=== PATIENT | female | born 1960 | race Caucasian/White ===

== ENCOUNTER 2016-11-19 10:50 | Emergency (ER) | payer BC ==
[2016-11-19 11:27] VITALS: BP 121/81
--- NOTE | 2016-11-19 11:45 | UC ---
Eye Complaint HPI - HPI Summary HPI Summary: left eye irritation, for past 3 days, itching and painful, slight discharge per patient. Complaints of sore throat. Some post nasal drip . has had greenish discharge in the left eye at first and perhaps spreading in to the right eye now. denies vision loss, photophobia, eye injury, denies wearing contact lens or recent travel [ End ] - History of Current Complaint Chief Complaint: UCEye Stated Complaint: LEFT EYE COMPLAINT Time Seen by Provider: 11/19/16 11:35 Hx Obtained From: Family/Engineer Third Assistant Onset/Duration: Gradual Onset Aggravating Factor(s): Nothing Alleviating Factor(s): Nothing Associated Signs And Symptoms: Positive: Drainage (Purulent). Negative: Photophobia, Vision Impairment Bilateral, Vision Impairment Right, Vision Impairment Left - Risk Factors Penetrating Injury Risk Factor: Negative Globe Rupture Risk Factors: Negative Acute Glaucoma Risk Factors: Negative Optic Artery Occlusion Risk Factors: Negative - Allergies/Home Medications Allergies/Adverse Reactions: Allergies Allergy/AdvReac Type Severity Reaction Status Date / Time No Known Allergies Allergy Verified 11/19/16 11:27 PMH/Surg Hx/FS Hx/Imm Hx Previously Healthy: Yes - Surgical History Surgical History: Yes Surgery Procedure, Year, and Place: inguinal hernia - Family History Known Family History: Positive: None - Social History Occupation: Employed Full-time - Wonderful employee at [employer] Alcohol Use: Occasionally Substance Use Type: None Smoking Status (MU): Never Smoked Tobacco Review of Systems Eyes: Eye Redness ENT: Sore Throat All Other Systems Reviewed And Are Negative: Yes Physical Exam Triage Information Reviewed: Yes Appearance: Well-Appearing, No Pain Distress, Well-Nourished Vital Signs: Initial Vital Signs Temp 98.7 F 11/19/16 11:23 Pulse 78 11/19/16 11:23 Resp 16 11/19/16 11:23 BP 121/81 11/19/16 11:23 Pulse Ox 99 11/19/16 11:23 Vital Signs Reviewed: Yes Eye Exam: Normal Eyes: Positive: Conjunctiva Inflamed - left lateral aspect of the sclera injected, Discharge - non present at this time but patient had previously wiped eyes ENT Exam: Normal ENT: Positive: Normal ENT inspection, Hearing grossly normal, Pharynx normal, Nasal congestion, TM dull - right Neck exam: Normal Neck: Positive: 1 Respiratory Exam: Normal Cardiovascular Exam: Normal Musculoskeletal Exam: Normal Neurological Exam: Normal Psychological Exam: Normal Skin Exam: Normal Eye Complaint Course/Dx - Course Course Of Treatment: Most likely bacterial as she has had discharge for 3 days in the one eye . Will start optholmic antibiotic at this time to prevent progression of the infection. Discussed potential for it to be viral / allergic as well. Will was hands diligently as she always does and consider OTC antihistamine to reduce post nasal drip. - Differential Dx/Diagnosis Differential Diagnosis/HQI/PQRI: Conjunctivitis, Corneal Abrasion Provider Diagnoses: Conjunctivitis Right eye Discharge - Discharge Plan Condition: Good Disposition: HOME Prescriptions: Polymyx/Trimethoprim OPTH* [Polytrim OPHTH*] 1 drop LEFT EYE Q3H #1 btl Patient Education Materials: Conjunctivitis (ED) Referrals: Trace Alonzo MD [Primary Care Provider] - If Needed
== END 2016-11-19 12:12 | disposition home or self-care (01) ==
LOC: UCCORT 10:50
DX: H10.31 Unspecified acute conjunctivitis, right eye (principal)
CPT/HCPCS: 99212; G0463

== ENCOUNTER 2016-11-24 08:53 | Emergency (ER) | payer BC ==
[2016-11-24 09:36] VITALS: BP 128/70
--- NOTE | 2016-11-24 09:54 | UC ---
Eye Complaint HPI - HPI Summary HPI Summary: right eye redness x 10 days + tearing , puffiness, no eye pain, no change in vision was seen 5 days ago placed on abx eye drops for conjunctivitis - History of Current Complaint Chief Complaint: UCEye Stated Complaint: LEFT EYE COMPLAINT Time Seen by Provider: 11/24/16 09:29 Hx Obtained From: Patient Hx Last Menstrual Period: 10yrs Onset/Duration: Gradual Onset, Lasting Days - 10, Still Present Timing: Constant Severity Initially: Moderate Severity Currently: Moderate Location of Injury: Conjunctiva Character: Foreign Body Sensation Aggravating Factor(s): Blinking Alleviating Factor(s): Nothing Associated Signs And Symptoms: Positive: Drainage (Clear) - left eye. Negative : Photophobia - Allergies/Home Medications Allergies/Adverse Reactions: Allergies Allergy/AdvReac Type Severity Reaction Status Date / Time No Known Allergies Allergy Verified 11/24/16 09:36 PMH/Surg Hx/FS Hx/Imm Hx Previously Healthy: Yes Cancer History: Other - lymphoma Other Cancer History: lymphoma - Surgical History Surgical History: Yes Surgery Procedure, Year, and Place: inguinal hernia - Family History Known Family History: Positive: None Negative: Diabetes - Social History Alcohol Use: Occasionally Substance Use Type: None Smoking Status (MU): Never Smoked Tobacco Review of Systems Constitutional: Negative Skin: Negative Eyes: Drainage - clear left eye, Eye Redness - left eye ENT: Negative Respiratory: Negative Cardiovascular: Negative Gastrointestinal: Negative Genitourinary: Negative Motor: Negative Neurovascular: Negative Musculoskeletal: Negative Neurological: Negative Psychological: Negative All Other Systems Reviewed And Are Negative: Yes Physical Exam Triage Information Reviewed: Yes Appearance: Well-Appearing, No Pain Distress, Well-Nourished Vital Signs: Initial Vital Signs Temp 98.9 F 11/24/16 09:30 Pulse 82 11/24/16 09:30 Resp 18 11/24/16 09:30 BP 128/70 11/24/16 09:30 Vital Signs Reviewed: Yes Eyes: Positive: Conjunctiva Inflamed - left eye, Discharge - clear / tears left eye ENT: Positive: Normal ENT inspection, Hearing grossly normal, Pharynx normal Neck exam: Normal Neck: Positive: Supple, Nontender, No Lymphadenopathy Respiratory: Positive: Chest non-tender, Lungs clear, Normal breath sounds Cardiovascular: Positive: RRR, No Murmur, Pulses Normal Musculoskeletal Exam: Normal Neurological: Positive: Alert Skin Exam: Normal Eye Complaint Course/Dx - Differential Dx/Diagnosis Provider Diagnoses: blocked tear ducts Discharge - Discharge Plan Condition: Stable Disposition: HOME Patient Education Materials: Blocked Tear Duct (ED) Referrals: Trace Alonzo MD [Primary Care Provider] - 5 Days Additional Instructions: use warm compresses, use flonase nasal spray
== END 2016-11-24 09:56 | disposition home or self-care (01) ==
LOC: UCCORT 08:53
DX: H04.559 Acquired stenosis of unspecified nasolacrimal duct (principal); Z85.72 Personal history of non-Hodgkin lymphomas
CPT/HCPCS: 99212; G0463

== ENCOUNTER 2016-12-06 07:33 | Emergency (ER) | payer BC ==
[2016-12-06 07:41] VITALS: BP 133/80
--- NOTE | 2016-12-06 08:33 | RAD ---
Indication: Sudden onset RIGHT knee pain, swelling, and instability following jumping. Comparison: None. Technique: RIGHT knee: AP, tunnel, lateral, sunrise views. Report: Moderate suprapatellar joint effusion and suggestion of soft tissue edema at the infrapatellar fat pad and popliteal fossa. Normal articular alignment and preserved joint spaces. Only minimal osteophytosis. No cortical disruption or suspicious trabecular irregularity to suggest fracture. IMPRESSION: Moderate suprapatellar joint effusion and suggestion of soft tissue edema at the infrapatellar fat pad and popliteal fossa. No radiographic conspicuous fracture. Consider intra-articular soft tissue injury versus radiographic occult fracture or osseous contusion.
--- NOTE | 2016-12-06 08:43 | UC ---
Knee Pain HPI - HPI Summary HPI Summary: patient jumped off a truck bed and felt her knee give out. Right knee is swollen and feels unstable. - History of Current Complaint Chief Complaint: UCLowerExtremity Stated Complaint: RIGHT KNEE INJURY Time Seen by Provider: 12/06/16 07:55 Hx Obtained From: Patient Hx Last Menstrual Period: 10yr ?: No Onset/Duration: Sudden Onset, Lasting Days Severity Initially: Severe Severity Currently: Moderate Aggravating Factor(s): Movement, Weight Bearing, Prolonged Standing, Stairs Alleviating Factor(s): Rest Associated Signs And Symptoms: Positive: Swelling, Weakness Able to Bear Weight: No - Allergies/Home Medications Allergies/Adverse Reactions: Allergies Allergy/AdvReac Type Severity Reaction Status Date / Time No Known Allergies Allergy Verified 12/06/16 07:41 Home Medications: Home Medications Aleve 220mg 440 mg PO ONCE PRN 12/06/16 [History Confirmed 12/06/16] Antibiotic/Steroid Eye Drop 1 lforence LEFT EYE QID 12/06/16 [History Confirmed 12/06] PMH/Surg Hx/FS Hx/Imm Hx Previously Healthy: Yes - Surgical History Surgical History: Yes Surgery Procedure, Year, and Place: inguinal hernia - Family History Known Family History: Positive: None Negative: Diabetes - Social History Alcohol Use: Occasionally Substance Use Type: None Smoking Status (MU): Never Smoked Tobacco Review of Systems Constitutional: Negative Skin: Negative Eyes: Negative ENT: Negative Respiratory: Negative Cardiovascular: Negative Gastrointestinal: Negative Genitourinary: Negative Motor: Negative Neurovascular: Negative Musculoskeletal: Arthralgia, Decreased ROM, Edema, Myalgia Neurological: Negative Psychological: Negative Is Patient Immunocompromised?: No All Other Systems Reviewed And Are Negative: Yes Physical Exam Triage Information Reviewed: Yes Appearance: Well-Appearing, Well-Nourished, Pain Distress Vital Signs: Initial Vital Signs Temp 98 F 12/06/16 07:36 Pulse 81 12/06/16 07:36 Resp 18 12/06/16 07:36 BP 133/80 12/06/16 07:36 Vital Signs Reviewed: Yes Eye Exam: Normal ENT Exam: Normal Respiratory Exam: Normal Cardiovascular Exam: Normal Abdominal Exam: Normal Bowel Sounds: Positive: Present Musculoskeletal: Positive: Strength Limited @ - in right leg, unable to bear weight, ROM limited in flexion and extension, Edema @ - around the joint Neurological Exam: Normal Psychological Exam: Normal Skin Exam: Normal Knee Pain Course/Dx - Course Course Of Treatment: hx obtained, exam performed ,meds reviewed, xray obtained, mo, crutches and knee immobilizer applied, referred to orthopedics - Differential Dx/Diagnosis Differential Diagnosis/HQI/PQRI: Contusion, Dislocation, Fracture (Closed), Internal Derangement Of Knee, Patellofemoral Syndrome, Sprain, Strain Provider Diagnoses: knee pain and swelling, right. possible ligament tear of right knee Discharge - Discharge Plan Condition: Stable Disposition: HOME Patient Education Materials: Swollen Knee Joint (ED) Forms: *Work Release Referrals: Trace Alonzo MD [Primary Care Provider] - Jomar Gutierres MD [Medical Doctor] - Mey Hadley MD [Medical Doctor] - Additional Instructions: 1. No weight bearing, 2. Use the crutches, and immoblizer until cleared by ortho. 3. elevate the leg at rest 4. Follow up with ortho tomorrow.
== END 2016-12-06 09:12 | disposition home or self-care (01) ==
LOC: UCCORT 07:33
DX: M25.561 Pain in right knee (principal); M25.461 Effusion, right knee
CPT/HCPCS: 99213; G0463